=== PATIENT | female | born 1945 | race Caucasian/White ===

== ENCOUNTER → 2018-10-25 | Outpatient (CLI) | payer MEDICARE, BC ==
--- NOTE | 2018-10-25 17:01 | PCVCIMAG ---
APPROVED REPORT Study performed: 10/25/2018 15:01:42 Exam: Stress Echocardiogram Indication: Hyperlipidemia, Hypertension, Abnormal calcium score Patient Location: Echo lab Stress Nurse: Syeda Velasco RN Ht: 5 ft 7 in HR: 56 bpm BP: 140/90 mmHg Rhythm: NSR Medical History Medical History: Smoking Procedure The patient underwent an Exercise Stress Test using the Satish Protocol. Blood pressure, heart rate, and EKG were monitored. An Echocardiogram was performed by bioprocessing manufacturing technician in four stages in quad fashion. At peak stress, four selected images were obtained and placed side by side with resting images for comparison. Stress Test Details Stress Test: Exercise stress testing was performed using a Satish protocol. HR Resting HR: 56 bpmMax Heart Rate (APMHR): 149 bpm Max HR Achieved: 102 bpmTarget HR (85% APMHR): 126 bpm % of APMHR: 68 Recovery HR: 70 bpm HR response to stress: Normal HR response to stress BP Resting BP: 140/90 mmHg Max BP: 150/90 mmHg Recovery BP: 138/80 mmHg BP response to stress: Normal blood pressure response to stress. ECG Resting ECG: Sinus Rhythm, NSSTT changes Stress ECG: Sinus Rhythm ST Change: Horizontal ST depression Maximum ST Deviation: 1 mm Arrhythmia: None Recovery ECG: Clear Recovery ST Change: Normal Recovery ST Deviation: 0 mm Recovery Arrhythmia: None Clinical Reason for Termination: Maximal effort Exercise duration: 6 min 07 sec Highest Stage Achieved: Stage 2: 2.5 mph at 12% grade. Exercise capacity: 7.30 METs Overall Exercise Capacity for Age: Poor Angina Score: None Stress ECG Conclusion Clinical: Non-ischemic Non-diagnostic exercise stress due to failure to attain target HR. [place] Treadmill Score is 1.0 which is Moderate risk. Pre-Stress Echo The resting Echocardiogram showed normal left ventricular contractility with an estimated Ejection Fraction of about >55%. Normal wall motion in all segments on baseline images. Post-Stress Echo The stress Echocardiogram showed normal left ventricular contractility with an estimated Ejection Fraction of about 60-65%. Normal augmentation of wall motion in all segments on post stress images. Clinical No clinical or ECG evidence for ischemia. Conclusion Clinical Response: Non-ischemic Exercise Capacity: Below Average Stress ECG Response: Ischemic Stress Echo Images: Indeterminant Non-diagnostic study due to inability of the patient to achieve 85% of maximal HR. Suggest myocardial perfusion imaging, scheduled <Conclusion> Non-diagnostic study due to inability of the patient to achieve 85% of maximal HR. Suggest myocardial perfusion imaging, scheduled
== END | disposition home or self-care (01) ==
LOC: PCVCIMAG 14:46
PROVIDERS: ATTEND Family Medicine
DX: R93.1 Abnormal findings on diagnostic imaging of heart and coronary circulation (principal); I10 Essential (primary) hypertension; E78.2 Mixed hyperlipidemia
CPT/HCPCS: 93325; 93351

== ENCOUNTER → 2018-11-09 | Outpatient (CLI) | payer MEDICARE, BC ==
[~2018-11-09] MED LIST: REGADENOSON 0.4 MG/5 ML DISP.SYRIN. IV ONE
--- NOTE | 2018-11-09 17:12 | PCVCIMAG ---
APPROVED REPORT Imaging Protocol: Rest Tc-99m/Stress Tc-99m 1 day Study performed: 11/09/2018 09:23:41 Indication: High Ca Score, Prior Submaximal Stress Echo Patient Location: Out-Patient Stress Nurse: Syeda Velasco RN, Cristiane Narvaez RN OR Tech:JUWAN Duarte Ht: 5 ft 5 in Wt: 148 lbs BSA: 1.74 m2 HR: 71 bpm BP: 149/68 mmHg BMI: 24.6 Rhythm: Normal Sinus Rhythm, Septal Infarct Medical History Medical History: Hyperlipidemia, HTN, COPD, Current Smoker Medications: Propranolol, Maxzide, Albuterol, Synthroid Allergies: Keflex Cardiac Risk Factors: Age, FHX of CAD Pretest Chest Pain Characteristics: No chest pain Exercise History: Sedentary Meds Held (24 hrs): Propranolol Resting Data Rest SPECT myocardial perfusion imaging was performed in supine position 45 minutes following the intravenous injection of 9.4 mCi of Tc-99m Sestamibi. Time of rest injection: 929 Administration Route: IV Administration Site: Right AC Pharmacologic Stress Pharmacologic stress test was performed by injecting Regadenoson 0.4 mg IV push over 10-15 seconds immediately followed by the intravenous injection of 32.3 mCi of Tc-99m Sestamibi. Time of stress injection: 5 Date: 11/09/2018 Administration Route: IV Administration Site: Right AC Gated Stress SPECT was performed 45 minutes after stress injection. The images were gated to evaluate regional wall motion and calculate left ventricular ejection fraction. Stress Test Details Stress Test: Pharmacologic stress was paired with low level exercise. Reason for pharmacologic stress test: physical limitation, prior submaximal SE. HRMax Heart Rate (APMHR): 149 bpm Resting HR: 71 bpmTarget HR (85% APMHR): 126 bpm Max HR Achieved: 118 bpm % of APMHR: 79 Recovery HR: 88 bpm BP Resting BP: 149/68 mmHg Max BP: 124/60 mmHg Recovery BP: 139/70 mmHg ECG Resting ECG: Normal Sinus Rhythm, Septal Infarct Stress ECG: Sinus Tachycardia ST Change: Downsloping ST depression Maximum ST Deviation: 1 mm Arrhythmia: PVC Recovery ECG: Sinus Rhythm, Downsloping ST Depression Recovery ST Change: Downsloping ST depression Recovery ST Deviation: 1 mm Recovery Arrhythmia: None Clinical Reason for Termination: Completed protocol Stress Symptoms: Chest pain, Chest pressure, Dyspnea, Lightheaded Exercise duration: 4 min 00 sec Exercise capacity: 1.6 METs Symptoms resolved with caffeine. Nurse Comments Midsternal chest pain Stress ECG Conclusion Clinical: Indeterminate Abnormal exercise stress ECG consistent with stress-induced myocardial ischemia. Study Quality Study: Good Study Data Post stress, the left ventricular ejection was 71%.. SSS: 2 SRS: 0 SDS: 2 TID = 1.18. Perfusion No evidence of stress induced ischemia or prior myocardial infarction. Wall Motion Normal left ventricular size and function with no regional wall motion abnormalities. Nuclear Conclusion No evidence of stress induced ischemia or prior myocardial infarction. Normal left ventricular size and function with no regional wall motion abnormalities. Post stress, the left ventricular ejection was 71%. No prior study available for comparison. Interpreted by: Luiz Nunez MD Electronically Approved: 11/09/2018 16:55:21 <Conclusion> Clinical: Indeterminate Abnormal exercise stress ECG consistent with stress-induced myocardial ischemia.
== END | disposition home or self-care (01) ==
LOC: PCVCIMAG 09:05
PROVIDERS: ATTEND Internal Medicine
DX: I25.9 Chronic ischemic heart disease, unspecified (principal); R94.31 Abnormal electrocardiogram [ECG] [EKG]; J44.9 Chronic obstructive pulmonary disease, unspecified; F17.200 Nicotine dependence, unspecified, uncomplicated; E78.5 Hyperlipidemia, unspecified
CPT/HCPCS: 78452; 93017; A9500; J2785